=== PATIENT | female | born 1975 | race Caucasian/White ===

== ENCOUNTER → 2019-03-17 12:43 | Outpatient (CLI) | payer OTHER, SELFPAY ==
--- NOTE | 2019-03-17 | DI.US.S_ITS ---
ULTRASOUND OF LEFT BREAST: 03/17/2019 CLINICAL: Palpable left breast lump. Comparison is made to exam dated: 03/17/2019 and 02/19/2017 [facility]. Color flow and real-time ultrasound of the left breast were performed. Hinton scale images of the real-time examination were reviewed. There is a 0.7 cm x 0.6 cm x 0.8 cm irregular mass with an angular margin in the left breast at 3 o'clock middle depth 6 cm from the nipple. This irregular mass is hypoechoic with no posterior acoustic shadowing or enhancement. Color flow imaging demonstrates that there is vascularity present. There also is a lymph node with eccentric cortical thickening in the left axillary tail. This lymph node is hypoechoic with fatty hilum. IMPRESSION: SUSPICIOUS OF MALIGNANCY The 0.7 cm x 0.6 cm x 0.8 cm irregular mass in the left breast at 3 o'clock middle depth is suspicious of malignancy. An ultrasound guided biopsy is recommended. The lymph node with eccentric cortical thickening in the left axillary tail is suspicious of malignancy. An ultrasound guided biopsy is recommended. Findings and recommendations were discussed with the patient during today's visit by Dr. Mosqueda. This exam was interpreted at Station ID: [id number]. Electronically Signed By: Juni walden/:03/18/2019 09:31:52 Entry: - 03/18/2019 09:31:52 letter sent: Biopsy Required Ultrasound BI-RADS: 4 Suspicious for malignancy
--- NOTE | 2019-03-17 | DI.MG.S_ITS ---
BILATERAL DIGITAL DIAGNOSTIC MAMMOGRAM 3D/2D: 03/17/2019 CLINICAL: Left breast lump. Comparison is made to exam dated: 02/19/2017 [facility]. The tissue of both breasts is heterogeneously dense. This may lower the sensitivity of mammography. No significant masses, calcifications, or other findings are seen in either breast. IMPRESSION: INCOMPLETE: NEEDS ADDITIONAL IMAGING EVALUATION There is no abnormality seen in the left breast to correspond with the area of clinical concern and palpable abnormality in the upper outer quadrant, however, further evaluation with sonogram is recommended which is scheduled to immediately follow this examination. This exam was interpreted at Station ID: [id number]. NOTE: For mammograms, a report in lay terms will be sent to the patient. Approximately 15% of breast malignancies will not be visualized mammographically. In the management of a palpable breast mass, a negative mammogram must not discourage biopsy of a clinically suspicious lesion. Electronically Signed By: Juni Mata M.D. aty/:03/17/2019 14:05:26 ACR BI-RADS Category 0: Incomplete [id number]
== END ==
PROVIDERS: PCP Physician Assistant; Visit Provider Family Medicine
DX: R92.8 Other abnormal and inconclusive findings on diagnostic imaging of breast (principal); N63.25 Unspecified lump in the left breast, overlapping quadrants; R59.0 Localized enlarged lymph nodes
CPT/HCPCS: 76642; 77066; G0279

== ENCOUNTER → 2020-03-01 17:31 | Outpatient (CLI) | payer MEDICARE, OTHER, SELFPAY ==
--- NOTE | 2020-03-01 | DI.MRI.S_ITS ---
PROCEDURE: MR LUMBAR SPINE WO CON INDICATIONS: Radiculopathy, lumbosacral region TECHNIQUE: Noncontrast sagittal T1 spin echo and T2 fast echo, sagittal STIR, axial T1 and T2 fast spin echo through the lumbar spine. In cases with scoliosis, additional coronal T2 fast spin echo may be performed. COMPARISON: [facility], MR, L-SPINE WITHOUT CONTRAST, 11/15/2011, 16:40. FINDINGS: Image quality: Degraded by motion artifact. Alignment and Curvature: Straightening of the normal lordotic curvature. Bone Marrow: No fracture. Multilevel degenerative endplate sclerosis and spurring. Diffuse facet arthropathy. Endplate degenerative signal changes most pronounced at L3-L4. Spinal Cord: Conus medullaris terminates at the L1-L2 level. Visualized cord demonstrates normal signal and size. Paraspinous Soft Tissues: Subcentimeter renal foci, statistically cysts, although technically too small to characterize accurately and therefore nonspecific. L1-L2: Normal appearance. L2-L3: Normal appearance. L3-L4: Mild canal narrowing. Partial effacement of both lateral recesses with bilaterally symmetric appearance. Mild left and moderate right foraminal narrowing. No definite interval change L4-L5: Interval worsening and enlargement of left paramedian disc protrusion, and posterior annular fissure. There is further effacement of the left lateral recess. There is also partial effacement of the right lateral recess. Mild bilateral foraminal narrowing. This is unchanged L5-S1: No definite canal or lateral recess narrowing. Mild left foraminal narrowing. No right foraminal stenosis. IMPRESSION: Interval worsening of L4-L5 left paramedian disc protrusion as detailed above. Interval progression of left subarticular narrowing raising the possibility of impingement of the descending left L5 nerve root. Please correlate to clinical exam findings Elsewhere, grossly unchanged examination Dictated by: Tawanda Castañeda M.D. on 03/02/2020 at 9:12 Approved by: Tawanda Castañeda M.D. on 03/02/2020 at 9:27
== END ==
PROVIDERS: PCP Physician Assistant; Referring Provider Family Medicine; Visit Provider Family Medicine
DX: M51.16 Intervertebral disc disorders with radiculopathy, lumbar region (principal)
CPT/HCPCS: 72148

== ENCOUNTER → 2020-05-19 12:02 | Outpatient (CLI) | payer MEDICARE, OTHER, SELFPAY ==
--- NOTE | 2020-05-19 | DI.CT.S_ITS ---
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 5 mm coronal and sagittal reformats were performed, with additional 7 mm coronal MIP reformats through the lungs. For radiation dose reduction, the following was used: automated exposure control, adjustment of mA and/or kV according to patient size. COMPARISON: [facility], MR, MR LUMBAR SPINE WO CON, 03/01/2020, 18:24. FINDINGS: Image quality: Excellent. CHEST: Lungs and pleura: There is a 5 mm subpleural nodule in the left upper lobe (series 5, image 71). A cluster of 3 mm nodules are seen in the left lower lobe (series 5, image 158). Another 3 mm nodule is seen in the left lower lobe (series 5 image 246). No acute airspace opacities. No pleural effusions or pneumothorax. Central and peripheral airways appear patent and normal in caliber. Mediastinum: Heart size is normal. No pericardial effusion. A borderline enlarged right hilar lymph node measures 1.2 cm. No mediastinal adenopathy by size criteria. Thoracic aorta and central pulmonary arteries are normal in size. Esophagus is normal in caliber. No hiatal hernia. Chest wall: Bilateral mastectomies and lymph node dissections. Prominent axillary lymph nodes are identified bilaterally measuring up to 0.8 x 1.2 cm on the right and 0.9 mm on the left. Thyroid gland is normal. ABDOMEN: Solid organs: Liver is normal in size and enhancement. Gallbladder is normal. Biliary system is non dilated. Pancreas enhances normally. Spleen is normal in size and enhancement. No adrenal nodules. Kidneys demonstrate normal size and enhancement, without hydronephrosis. Peritoneum and bowel: Bowel loops demonstrate normal wall thickness and caliber. There is a large amount of stool in colon. No free fluid or air. Nodes and vessels: No retroperitoneal or mesenteric adenopathy by size criteria. Aorta and inferior vena cava are normal in size. Miscellaneous: No ventral hernias. PELVIS: Genitourinary: There is a 1.8 x 2.2 cm enhancing mass in the superior to uterus left of the midline. A 1.6 cm round submucosal lesion is in arising from the anterior wall, most likely a uterine fibroid. Ovaries are not well seen. Bladder wall thickness is normal. Miscellaneous: No inguinal hernias or adenopathy. Subcentimeter inguinal lymph nodes are present bilaterally, most likely reactive. Bones: No suspicious bony lesions. No vertebral body compression fractures. Degenerative changes in the lower lumbar spine. IMPRESSION: 1. Postsurgical changes related to bilateral mastectomies. 2. A borderline enlarged right hilar lymph node is indeterminate. 3. Multiple prominent subcentimeter lymph nodes are seen in the axillae bilaterally. Garfield metastasis cannot be excluded. Please correlate with pathological diagnosis from bilateral axillary lymph node dissections. 3. Multiple left lung nodules. Recommend a short-term follow-up CT in 3 months. The right hilar lymph node can be followed at the same time. 4. A 1.8 x 2.2 cm enhancing mass in the left pelvis superior to the uterus most likely an exophytic fibroid versus, but an ovarian mass command be excluded. Pelvic ultrasound is recommended for follow-up evaluation. 5. Myomatous uterus. Dictated by: Lisa Lynn M.D. on 05/19/2020 at 16:47 Approved by: Lisa Lynn M.D. on 05/19/2020 at 17:29
== END ==
PROVIDERS: PCP Physician Assistant; Referring Provider Internal Medicine Medical Oncology; Visit Provider Internal Medicine Medical Oncology
DX: D05.12 Intraductal carcinoma in situ of left breast (principal); R91.8 Other nonspecific abnormal finding of lung field; R59.0 Localized enlarged lymph nodes; R19.00 Intra-abdominal and pelvic swelling, mass and lump, unspecified site; D25.9 Leiomyoma of uterus, unspecified; Z90.13 Acquired absence of bilateral breasts and nipples
CPT/HCPCS: 71260; 74177; Q9967

== ENCOUNTER → 2020-07-24 10:41 | Outpatient (CLI) | payer MEDICARE, OTHER, SELFPAY ==
--- NOTE | 2020-07-24 | DI.CT.S_ITS ---
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 5 mm coronal and sagittal reformats were performed, with additional 7 mm coronal MIP reformats through the lungs. For radiation dose reduction, the following was used: automated exposure control, adjustment of mA and/or kV according to patient size. COMPARISON: Outside Facility, , CT THORAX/ABDOMEN/PELVIS WITH CONTRAST, 05/18/2019, 11:41. [facility], CT, CT CHEST ABD PEL W CON, 05/19/2020, 12:59. FINDINGS: Image quality: Excellent. CHEST: Unchanged 4 mm nodules associated with the left fissure. Additional 5 mm pleural nodule seen in the left upper lobe posteriorly on image 63/2 also unchanged. No pleural effusions or pneumothorax. Central and peripheral airways appear patent and normal in caliber. Mediastinum: Heart size is normal. No pericardial effusion. A right hilar lymph node measuring 1.0 x 1.6 cm slightly more conspicuous since 05/19/20 (1.1 x 1.7 cm) however the appearance could be due to slice registration artifact, given no definite increase in size. Recommend continued close attention to this area on subsequent studies. Thoracic aorta and central pulmonary arteries are normal in size. Esophagus is normal in caliber. No hiatal hernia. Chest wall: No axillary or supraclavicular adenopathy by size criteria. Thyroid is grossly unremarkable. Postsurgical changes related to bilateral mastectomies. ABDOMEN: Solid organs: Liver is normal in size and enhancement. The gallbladder is grossly unremarkable.. Biliary system is non dilated. Pancreas enhances normally. Spleen is normal in size and enhancement. No adrenal nodules. Kidneys demonstrate normal size and enhancement, without hydronephrosis. Peritoneum and bowel: Bowel loops demonstrate normal wall thickness and caliber. No free fluid or air. Nodes and vessels: No retroperitoneal or mesenteric adenopathy by size criteria. Aorta and inferior vena cava are normal in size. Miscellaneous: No ventral hernias. PELVIS: Genitourinary: Bladder wall thickness is normal. Miscellaneous: No inguinal hernias or adenopathy. Bones: No suspicious bony lesions. No vertebral body compression fractures. IMPRESSION: Overall, grossly stable examination without specific evidence of metastatic disease. A right hilar lymph node appears slightly more conspicuous as detailed above although this could be due to slice registration artifact. Recommend attention to this area on subsequent studies Dictated by: Tawanda Castañeda M.D. on 07/24/2020 at 14:26 Approved by: Tawanda Castañeda M.D. on 07/24/2020 at 14:41
--- NOTE | 2020-07-24 | DI.RAD.S_ITS ---
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 COMPARISON: None. FINDINGS: Bones: No fracture. Mild levocurvature. Straightening of the normal lordotic curvature. Severe narrowing of the L4-L5 disc space. Moderate L4-L5 and L5-S1 disc space narrowing. Soft tissues: Overlying bowel gas pattern is normal. No suspicious soft tissue calcifications. Oblique images: No pars defects. IMPRESSION: Lumbar spondylosis and mild levocurvature as above Dictated by: Tawanda Castañeda M.D. on 07/24/2020 at 12:34 Approved by: Tawanda Castañeda M.D. on 07/24/2020 at 12:36
--- NOTE | 2020-09-06 09:43 | ONC.MSW ---
Called pt re: referral, she has decided to go to [facility] for her care at this time.
== END ==
PROVIDERS: PCP Physician Assistant; Referring Provider Internal Medicine Medical Oncology; Visit Provider Internal Medicine Medical Oncology
DX: C50.911 Malignant neoplasm of unspecified site of right female breast (principal); C50.912 Malignant neoplasm of unspecified site of left female breast; R91.8 Other nonspecific abnormal finding of lung field; M47.26 Other spondylosis with radiculopathy, lumbar region; M51.16 Intervertebral disc disorders with radiculopathy, lumbar region; Z90.13 Acquired absence of bilateral breasts and nipples; Z90.710 Acquired absence of both cervix and uterus
CPT/HCPCS: 71260; 72110; 74177; 99214; Q9967

== ENCOUNTER 2020-08-10 15:22 | Outpatient (CLI) | payer MEDICARE, OTHER, SELFPAY ==
[2020-08-10] VITALS (7 sets, daily range): BP systolic 107–136; BP diastolic 65–72; PULSE 73–94; RESP 13–19; TEMP 37.2; O2SAT 99–100
--- NOTE | 2020-08-10 15:43 | DI.RAD.S_ITS ---
PROCEDURE: PAIN L/S TRANSFORAMINAL INJECT INDICATIONS: SPONDYLOSIS COMPARISON: [facility], CR, XR LUMBAR SPINE MIN 4V, 07/24/2020, 11:03. FINDINGS: Fluoroscopic spot filming was performed to verify placement of a spinal needle at the L4-L5 level, as labeled on the films. Appropriate location of the needle tip was confirmed by injection of iodinated contrast. IMPRESSION: Intraprocedural examination within normal limits. Dictated by: Christophe Parson M.D. on 08/10/2020 at 16:15 Approved by: Christophe Parson M.D. on 08/10/2020 at 16:15
[2020-08-10] MEDS: IOPAMIDOL 15 ML VIAL 3 ML INJ (16:08)
[2020-08-10] MEDS: DEXAMETHASONE 10 MG/ML VIAL 20 MG INJ (16:08)
[2020-08-10] MEDS: BUPIVACAINE 0.25% (PF) VIAL 2 ML INJ (16:08)
[2020-08-10] MEDS: methylPREDNISolone acetate 80 MG/ML VIAL INJ (16:10)
--- NOTE | 2020-08-10 16:31 | P.PCN_ITS ---
Date/Time/Diagnoses Date of procedure: 08/10/20 Time of procedure: 16:32 Pre-procedure diagnosis: 1. FORAMINAL STENOSIS WITH LE SYMPTOMS Post-procedure diagnosis: same Procedure Notes Procedure: 1. FLUOROSCOPICALLY GUIDED CONTRAST CONTROLLED TRANSFORAMINAL EPIDURAL STEROID INJECTION - RIGHT L4/5 TFESI Indications: Neris is referred by PAC Nolan for treatment of Foraminal Stenosis with Right LE Symptoms Physician: Rudy Enamorado Total Fluoroscopy time (seconds): 16 Total sedation minutes: 0 Complications: none Procedure in detail & Post-procedure care: FINDINGS Foraminal Nerve Root Compression secondary to disc disease and facet hypertrophy DESCRIPTION OF PROCEDURE Following review of allergy and review of potential side effects and complications, including, but not necessarily limited to, infection, allergic reaction, local tissue breakdown, stroke, temporary or permanent nerve injury, paralysis, and possible , the patient indicated that the patient understood and agreed to proceed. An informed consent document was signed by the patient, witnessed by a nurse, and placed in the patient's chart. Additionally, other treatment options including medications, modalities, and physical therapy were reviewed with the patient. After review of previous anaesthesic history and IV conscious sedation the patient was deemed safe to proceed with today?s procedure with IV conscious sedation as ASA class II designation. Safety time-out was performed to confirm patient ID, procedure to be performed and site of procedure. IV sedation was deemed unnecessary and thus not administered by the RN after DO order, titrated to patient comfort during the course of the procedure while the patient remained responsive to all verbal commands In the prone position following sterile prep and drape of the lumbar region, the right L4/5 posterior neuroforamen was identified fluoroscopically. The skin was anesthetized via a 25-gauge 1.5-inch needle with 1% lidocaine solution. At this point, a 25-gauge 3.5-inch spinal needle was atraumatically introduced and advanced under fluoroscopic guidance through the posterior right L4/5 neuroforamen to approximately the anterior aspect of the canal. Depth was confirmed on lateral view. Following negative aspiration, injection of approximately 1.5cc of Isovue 200 under live fluoroscopy in the AP view confirmed excellent flow along the nerve root, into the epidural space without vascular or intrathecal uptake observed Radiological data, including multiple fluoroscopic views of the lumbosacral spine, reveal a spinal needle at the right L4/5 posterior neuroforamen. Subsequent views show flow of contrast material flowing superiorly and inferiorly along the nerve root confirming epidural flow. Subsequently, a test dose of 1.5 cc of 1% lidocaine solution was administered and patient was observed for two minutes for signs or symptoms of complications, including abdominal pain, shortness of breath, bilateral upper or lower extremity weakness, nausea and vomiting, prior to steroid injection. At this point, a total of 3cc or 20mg of dexamethasone and 80mg depo-medrol was injected without incident. The procedure tolerated the procedure well without signs or symptoms of complications prior to transfer to the recovery area continued monitoring without incident. The patient was then transferred to the recovery area where they were observed for an appropriate time after the injection. The patient reported a VAS score of 7 prior to the procedure and a post- procedure VAS of 0. POST OP INSTRUCTIONS The patient was provided a Pain Log to continue to record their response to the target-specific procedure prior to follow-up visit with their referring physician. Additionally, specific post-injection care instructions and a contact number to our office were provided if concerns arise regarding possible complications associated with the procedure are suspected.
== END 2020-08-10 16:35 | disposition home or self-care (01) ==
PROVIDERS: PCP Physician Assistant; Referring Provider Physical Medicine & Rehabilitation; Visit Provider Physical Medicine & Rehabilitation
DX: M51.26 Other intervertebral disc displacement, lumbar region (principal); M54.16 Radiculopathy, lumbar region; M48.061 Spinal stenosis, lumbar region without neurogenic claudication
CPT/HCPCS: 64483; J0702; J1040; J1100; J2250; J3010

== ENCOUNTER → 2020-12-28 12:12 | Outpatient (CLI) | payer MEDICARE, OTHER, SELFPAY | PROVIDERS: PCP Physician Assistant; Referring Provider Physician Assistant; Visit Provider Physician Assistant | DX: R20.2 Paresthesia of skin (principal); R20.0 Anesthesia of skin | CPT/HCPCS: 95886; 95911 ==

== ENCOUNTER → 2020-12-29 13:20 | Outpatient (CLI) | payer MEDICARE, OTHER, SELFPAY ==
--- NOTE | 2020-12-29 13:25 | DI.US.S_ITS ---
PROCEDURE: US ABDOMEN LIMITED INDICATIONS: LEFT UPPER BACK MASS TECHNIQUE: Real-time focused scanning was performed of the abdomen, with image documentation. COMPARISON: None. FINDINGS: 2 complex hypoechoic masses are present corresponding to the palpable abnormality largest measuring up to 1.3 cm and the smaller roughly 4 mm. Mild internal vascularity. IMPRESSION: Nonspecific complex mildly vascular soft tissue masses. Differential would include both benign and malignant etiologies. If indicated, contrast-enhanced soft tissue MRI could be performed for further assessment. Dictated by: Roberto BERRIOS Interpreted: Lucas Malave MD on 12/29/2020 at 14:41 Transcribed by: AMERICA on 12/29/2020 at 14:42 Approved by: Lucas Malave M.D. on 12/29/2020 at 15:11
--- NOTE | 2020-12-29 13:25 | DI.CT.S_ITS ---
PROCEDURE: CT FACIAL BONES WO CON INDICATIONS: left sided facial trauma TECHNIQUE: Noncontrast 2.5 mm thick axial images acquired from the mandible through the frontal sinuses, with coronal and sagittal reformatting. For radiation dose reduction, the following was used: automated exposure control, adjustment of mA and/or kV according to patient size. COMPARISON: None. FINDINGS: Image quality: Excellent. Bones and teeth: Orbital cheatham are intact. Sinus cheatham show no fracture or deformity. Nasal bones and septum are intact. Visualized portions of the mandible demonstrate no fractures or subluxation. Zygomatic arches are intact. Pterygoid plates are intact. Visualized portions of the skull base and auditory canals are intact. Sinuses: Mild mucosal thickening is seen within the inferior maxillary sinuses. Paranasal sinuses are otherwise well aerated, without fluid levels, mucosal thickening, or mucoceles. Mastoid air cells are aerated. There is a left-sided jean bullosa. Moderate rightward nasal septal deviation can be seen. The ostiomeatal complexes are constitutionally narrowed, with bilateral Carolyn cells. The right ostiomeatal complex is further narrowed by soft tissue thickening. Soft tissues: No edema, masses, or fluid collections. No enlarged lymph nodes. No soft tissue lacerations or debris. Vascular: Visualized vascular structures appear normal in the absence of contrast. Bony vascular foramina and canals are intact. IMPRESSION: No displaced fractures are seen. Mild maxillary sinus disease can be seen. Narrowed ostiomeatal complexes, with bilateral Carolyn cells. Dictated by: Christophe Parson M.D. on 12/29/2020 at 12:51 Approved by: Christophe Parson M.D. on 12/29/2020 at 12:54
== END ==
PROVIDERS: PCP Physician Assistant; Referring Provider Physician Assistant; Visit Provider Physician Assistant
DX: S04.50XA Injury of facial nerve, unspecified side, initial encounter (principal); S09.93XA Unspecified injury of face, initial encounter; D49.2 Neoplasm of unspecified behavior of bone, soft tissue, and skin; J32.0 Chronic maxillary sinusitis; R42 Dizziness and giddiness; X58.XXXA Exposure to other specified factors, initial encounter
CPT/HCPCS: 70486; 76705

== ENCOUNTER → 2021-01-10 15:23 | Outpatient (CLI) | payer MEDICARE, OTHER, SELFPAY ==
--- NOTE | 2021-01-10 15:24 | DI.MRI.S_ITS ---
PROCEDURE: MR CHEST WO/W CON INDICATIONS: left upper back/scapular area soft tissue masses TECHNIQUE: Axial 2-D FLASH in- and [id number], axial breath-hold T2 FSE, axial STIR FSE. Optional contrast may be given, followed by axial 2-D FLASH with fat saturation acquired over the lesion of concern. AM are surface marker was placed over the area of current clinical concern. Imaging was performed without and with contrast. COMPARISON: [facility], US, US ABDOMEN LIMITED, 12/29/2020, 14:01. FINDINGS: Image quality: Excellent. Region of interest: Small ovoid sharply demarcated structure seen also by ultrasound 12/29/20 within the subcutaneous fat of the posterior upper back on the left. The clinical history gathered by the technologist indicates that this structure has been present for many years. Please confirm. There is a previously sonographically evaluated ovoid ashley shaped structure within the subcutaneous fat corresponding to the area of patient's clinical concern. By ultrasound this was accurately measured as up to 1.3 by 1.2 x 0.5 cm. It shows minimal enhancement, homogeneous, and represents the palpable area of clinical concern. Bones: Nearby osseous structures demonstrate normal overall marrow signal. IMPRESSION: Nonspecific sharply demarcated ovoid reportedly longstanding structure in the subcutaneous fat measuring up to 1.3 x 1.2 x 0.5 cm dorsal to the upper posterior back region near the axial equivalent of just below the lung apex. This structure could be excised for histologic analysis if clinically warranted. The prior ultrasound had reported a very small medial structure in the subcutaneous fat near this palpable nodule, but that separate site could not be located by MR scanning. Dictated by: Lucas Malave M.D. on 01/11/2021 at 9:02 Approved by: Lucas Malave M.D. on 01/11/2021 at 9:09
== END ==
PROVIDERS: PCP Physician Assistant; Referring Provider Physician Assistant; Visit Provider Physician Assistant
DX: D49.2 Neoplasm of unspecified behavior of bone, soft tissue, and skin (principal); Z85.3 Personal history of malignant neoplasm of breast
CPT/HCPCS: 71552; A9579

== ENCOUNTER → 2021-02-21 16:04 | Outpatient (CLI) | payer MEDICARE, OTHER, SELFPAY ==
[2021-02-21 17:36] LABS: C-Reactive Protein Quant < 0.5 mg/dL (<1.0); Uric Acid 3.6 mg/dL (2.5-6.2)
[2021-02-21 17:39] LABS: Rheumatoid Factor < 8.6 IU/mL (<12.0)
[2021-02-21 17:41] LABS: Erythrocyte Sedimentation Rate 2 MM/HR (0-20)
[2021-02-21 18:15] LABS: Thyroid Stimulating Hormone 2.75 uIU/mL (0.47-4.68)
[2021-02-24 16:57] LABS: ANA Screen, IFA Positive (.)
== END ==
PROVIDERS: PCP Physician Assistant; Referring Provider Orthopaedic Surgery Foot and Ankle Surgery; Visit Provider Orthopaedic Surgery Foot and Ankle Surgery
DX: M65.30 Trigger finger, unspecified finger (principal)
CPT/HCPCS: 36415; 83036; 84443; 84550; 85651; 86038; 86140; 86430

== ENCOUNTER → 2021-04-03 08:56 | Outpatient (CLI) | payer MEDICARE, OTHER, SELFPAY ==
--- NOTE | 2021-04-03 08:57 | DI.MRI.S_ITS ---
PROCEDURE: MR CERVICAL SPINE WO CON INDICATIONS: midline neck pain x 1 year w/o DANYEL, bilat hand weak trigger TECHNIQUE: Noncontrast sagittal T1 spin echo and T2 fast spin echo, sagittal STIR, foraminal oblique sagittal T2 fast spin echo, and axial gradient echo or T2 fast spin echo through the cervical spine. COMPARISON: None. FINDINGS: Image quality: This examination is limited by involuntary motion artifact. Alignment and Curvature: Reversal of the normal cervical lordosis is seen, with the apex at the C4-C5 level. Minimal retrolisthesis is seen at C5-C6. Bone Marrow: Marrow demonstrates normal overall signal. Spinal Cord: Visualized spinal cord has normal size and signal. No cerebellar tonsillar herniation. Paraspinous Soft Tissues: No paravertebral masses. Prevertebral soft tissues are normal in thickness. C2-C3: The disc height is well-preserved. Loss of disc signal is seen at this level. No significant neural foraminal or central canal narrowing can be seen. C3-C4: The disc height is well-preserved. Loss of disc signal is seen at this level. Mild to moderate disc osteophyte complex is seen. Mild to moderate facet hypertrophy is seen. Mild to moderate bilateral neural foraminal narrowing can be seen. No significant central canal narrowing is seen. C4-C5: Moderate loss of disc height is seen. Loss of disc signal is seen. Moderate disc osteophyte complex is seen, which is eccentric to the right. There is a mild central disc osteophyte protrusion seen. There is mild right-sided and [id number] left-sided facet hypertrophy seen at this level. There is at least moderate bilateral neural foraminal narrowing seen. Mild to moderate central canal narrowing is seen, with associated mass effect upon the ventral spinal cord. C5-C6: At least moderate loss of disc height is seen. At least moderate disc osteophyte complex is seen. There is a central/left disc osteophyte protrusion seen. Moderate facet joint hypertrophy is seen. Moderate to severe bilateral neural foraminal narrowing can be seen. Moderate to severe central canal narrowing is seen, with associated mass effect upon the ventral spinal cord. C6-C7: Moderate loss of disc height is seen. Loss of disc signal is seen. Moderate disc osteophyte complex is seen, with a central/left disc osteophyte protrusion. Mild to moderate facet hypertrophy is seen. There is at least moderate bilateral neural foraminal narrowing seen. Mild to moderate central canal narrowing is seen. C7-T1: No significant abnormality is seen. IMPRESSION: Multiple levels of premature cervical spine degenerative changes are seen, which are overall most prominent at C5-C6. Dictated by: Christophe Parson M.D. on 04/03/2021 at 9:56 Approved by: Christophe Parson M.D. on 04/03/2021 at 9:59
== END ==
PROVIDERS: PCP Physician Assistant; Referring Provider Physician Assistant; Visit Provider Physician Assistant
DX: M47.812 Spondylosis without myelopathy or radiculopathy, cervical region (principal); M54.2 Cervicalgia; R20.0 Anesthesia of skin; R20.2 Paresthesia of skin; M24.549 Contracture, unspecified hand
CPT/HCPCS: 72141

== ENCOUNTER → 2021-07-18 09:36 | Outpatient (CLI) | payer MEDICARE, OTHER, SELFPAY ==
--- NOTE | 2021-07-18 09:40 | DI.RAD.S_ITS ---
PROCEDURE: XR CERVICAL SPINE 4V OR 5V INDICATIONS: NECK PAIN TECHNIQUE: 5 views of the cervical spine acquired. COMPARISON: None. FINDINGS: Bones: No fractures or dislocations to the C7-T1 level. There is mild reversal of normal cervical lordosis centered at C4-5 level. Degenerative endplate changes and bilateral facet hypertrophic changes are noted at C4-5 through C6-7 levels. Oblique images demonstrate mild right-sided bony foraminal stenosis at C5-6 level and [id number] left-sided bony foraminal stenosis at C4-5 and C5-6 levels. Soft tissues: No prevertebral soft tissue swelling. IMPRESSION: Degenerative disc disease throughout mid to lower cervical spine with suggestion of bilateral bony foraminal stenosis as above. Dictated by: Brian Nolan M.D. on 07/18/2021 at 9:53 Approved by: Brian Nolan M.D. on 07/18/2021 at 9:54
== END ==
PROVIDERS: PCP Physician Assistant; Referring Provider Physical Medicine & Rehabilitation; Visit Provider Physical Medicine & Rehabilitation
DX: M50.121 Cervical disc disorder at C4-C5 level with radiculopathy (principal); M47.22 Other spondylosis with radiculopathy, cervical region; R20.0 Anesthesia of skin; R20.2 Paresthesia of skin; F43.12 Post-traumatic stress disorder, chronic; M65.311 Trigger thumb, right thumb; M65.312 Trigger thumb, left thumb; Z90.13 Acquired absence of bilateral breasts and nipples
CPT/HCPCS: 72050; 99215

== ENCOUNTER → 2021-11-14 09:51 | Outpatient (CLI) | payer MEDICARE, OTHER, SELFPAY ==
[2021-11-14 20:36] LABS: Add Manual Diff / Slide Review NO; Basophils Absolute Auto 0 /uL (0-100); Basophils Percent Auto 0.4 % (0-2); Eosinophils Absolute Auto 0 /uL (0-450); Eosinophils Percent Auto 0.1 % (2-4); Hemoglobin 13.4 g/dL (12.0-16.0); Lymphocytes Absolute Auto 1300 /uL (1100-4500); Lymphocytes Percent Auto 40.6 % (25-40); Mean Corpuscular HGB Conc 33.6 % (30-36); Mean Corpuscular Hemoglobin 30.5 PG (26-34); Mean Corpuscular Volume 90.8 fL (80-100); Monocytes Absolute Auto 300 /uL (0-900); Monocytes Percent Auto 8.4 % (3-14); Neutrophils Absolute Auto 1600 /uL (1500-7000); Neutrophils Percent Auto 50.5 % (50-75); Platelet Count 197 X10^3/uL (150-400); Red Cell Distribution Width 11.9 % (11.6-14.8); White Blood Cell Count 3.1 X10^3/uL (4.5-11.0)
[2021-11-14 20:50] LABS: Alanine Aminotransferase 19 IU/L (<35); Albumin 4.6 g/dL (3.5-5.0); Albumin Globulin Ratio 1.8 (1.0-2.8); Alkaline Phosphatase 68 U/L (38-126); Aspartate Aminotransferase 26 IU/L (14-36); BUN Creatinine Ratio 28.2 (6-22); Bilirubin Total 0.8 mg/dL (0.2-1.3); Blood Urea Nitrogen 20 mg/dL (7-17); Calcium 9.3 mg/dL (8.4-10.2); Carbon Dioxide 29 mmol/L (22-32); Chloride 105 mmol/L (98-107); Estimated Glomerular Filt Rate > 60 mL/min (>60); Globulin 2.5 g/dL (1.7-4.1); Glucose 98 mg/dL (70-100); HEMOLYSIS < 15 (0-50); Potassium 4.8 mmol/L (3.4-5.1); Sodium 141 mmol/L (137-145); Total Protein 7.1 g/dL (6.3-8.2)
== END ==
PROVIDERS: PCP Physician Assistant; Visit Provider Physician Assistant
DX: M51.26 Other intervertebral disc displacement, lumbar region (principal); C50.911 Malignant neoplasm of unspecified site of right female breast; D72.819 Decreased white blood cell count, unspecified
CPT/HCPCS: 80053; 85025

== ENCOUNTER → 2022-07-17 09:25 | Outpatient (CLI) | payer MEDICARE, OTHER, SELFPAY ==
--- NOTE | 2022-07-17 09:28 | DI.CT.S_ITS ---
PROCEDURE: CT CHEST ABD PEL W CON INDICATIONS: breast cancer TECHNIQUE: After the administration of oral and intravenous contrast, axial sections acquired from the supraclavicular neck to the pubic symphysis. Coronal and sagittal reformats were performed. For radiation dose reduction, the following was used: automated exposure control, adjustment of mA and/or kV according to patient size. COMPARISON: [facility], CT, CT CHEST ABD PEL W CON, 07/24/2020, 12:11. [facility], CT, CT CHEST ABD PEL W CON, 05/19/2020, 12:59. FINDINGS: Image quality: Excellent. CHEST: Lungs and pleura: No acute airspace opacities. No new or suspicious pulmonary nodules. No suspicious pulmonary mass. No septal thickening or nodularity. No pleural effusions or pneumothorax. Central and peripheral airways appear patent and normal in caliber. Mediastinum: Heart size is normal. No pericardial effusion. Redemonstration of superior right hilar lymph node measuring 1.0 x 1.5 cm in size (image 25/series 2). Otherwise, no new or suspicious mediastinal or hilar adenopathy. Thoracic aorta and central pulmonary arteries are normal in size. Esophagus is normal in caliber. No hiatal hernia. Chest wall: No axillary or supraclavicular adenopathy by size criteria. Thyroid gland is unremarkable. Osseous structures of the chest appear unremarkable. 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 ABDOMEN: Solid organs: Liver is unremarkable. No suspicious hepatic lesions identified. Gallbladder is unremarkable.. Biliary system is non dilated. Pancreas is unremarkable. Spleen is normal in size. No adrenal nodules. Kidneys demonstrate normal size, without hydronephrosis. Peritoneum and bowel: Bowel loops demonstrate normal wall thickness and caliber. No free fluid No free air. Moderate fecal burden seen throughout the colon. Nodes and vessels: No retroperitoneal or mesenteric adenopathy by size criteria. Aorta and inferior vena cava are normal in size. Miscellaneous: Tiny fat containing umbilical hernia without acute inflammation. PELVIS: Genitourinary: Bladder wall thickness appears normal for degree of distention. Reproductive organs appear unremarkable as visualized. Miscellaneous: No inguinal hernias. No pelvic adenopathy. Bones: No suspicious bony lesions. No acute vertebral body compression fractures. IMPRESSION: 1. CT chest, abdomen, and pelvis without evidence for disease recurrence or metastatic disease. No acute abnormalities identified. 2. Stable appearance of previously described prominent right hilar lymph node. No suspicious adenopathy identified elsewhere. Dictated by: Juni Mata M.D. on 07/22/2022 at 16:39 Approved by: Juni Mata M.D. on 07/22/2022 at 16:48
--- NOTE | 2022-07-17 09:28 | DI.NM.S_ITS ---
PROCEDURE: NM BONE SCAN WHOLE BODY RADIOPHARMACEUTICAL: 21.2 mCi Tc-99m MDP IV. INDICATIONS: breast cancer TECHNIQUE: Delayed whole-body scintigrams were obtained approximately 3-4 hours after intravenous injection of radiotracer. Anterior and posterior views were acquired from vertex to feet. Additional left and right oblique views of the spine were obtained. COMPARISON: [facility], CT, CT CHEST ABD PEL W CON, 07/17/2022, 11:04. FINDINGS: Physiologic uptake is noted within the kidneys and bladder. There is increased uptake at L4 and L5. It is overall nonspecific in appearance. No other areas of concerning uptake is identified. IMPRESSION: Uptake at L4-5 is noted nonspecific in appearance and could be related to degenerative change. However, recommend interval follow-up of this region on subsequent exams as metastatic disease cannot be definitively excluded. Dictated by: Seema hSea M.D. on 07/17/2022 at 16:37 Approved by: Seema Shea M.D. on 07/17/2022 at 16:39
== END ==
PROVIDERS: PCP Physician Assistant; Referring Provider Internal Medicine Hematology & Oncology; Visit Provider Internal Medicine Hematology & Oncology
DX: C50.912 Malignant neoplasm of unspecified site of left female breast (principal)
CPT/HCPCS: 71260; 74177; 78306; A9503; Q9967

== ENCOUNTER → 2022-09-27 16:29 | Outpatient (CLI) | payer MEDICARE, OTHER, SELFPAY ==
--- NOTE | 2022-09-27 16:31 | DI.MRI.S_ITS ---
PROCEDURE: MR HEAD/BRAIN WO CON INDICATIONS: Paresthesia of skin. Please evaluate for CVA. TECHNIQUE: Noncontrast axial T1 spin echo, axial T2 fast spin echo, sagittal and axial FLAIR, coronal T2 fast spin echo, axial gradient echo, axial diffusion and ADC through the brain. COMPARISON: None. FINDINGS: Image quality: Excellent. CSF Spaces: Basal cisterns are patent. No extra-axial fluid collections. Ventricles are normal in size and shape. Brain: Numerous foci of abnormal T2 weighted hyperintensity can be seen within the periventricular and deep white matter. A few of the periventricular lesions demonstrate a perpendicular orientation to the lateral ventricles. There are a few peripheral lesions seen, including at least 1 juxtacortical lesion involving the right frontal lobe laterally, as on series 7, image 17. There is involvement of the corpus callosum. Several of the larger lesions demonstrate low signal on T1 weighted imaging. No intracranial masses or hemorrhage. [place]/white matter interface is normal. Brainstem appears normal. Diffusion-weighted images demonstrate no acute ischemic insult. No chronic ischemic insults. Normal intravascular flow voids are present. Skull and face: Calvarium has normal marrow signal. Orbits appear normal. Sinuses: Mild mucosal thickening can be seen within the paranasal sinuses. No abnormal fluid is seen within the mastoid air cells. IMPRESSION: No findings of acute or subacute infarction can be seen. Numerous abnormal T2 hyperintense white matter lesions can be seen, which are highly suspicious for multiple sclerosis, particularly in a woman of this age. Dictated by: Christophe Parson M.D. on 09/27/2022 at 17:22 Approved by: Christophe Parson M.D. on 09/27/2022 at 17:24
== END ==
PROVIDERS: PCP Physician Assistant; Referring Provider Family Medicine; Visit Provider Family Medicine
DX: R20.0 Anesthesia of skin (principal); R20.2 Paresthesia of skin; R29.898 Other symptoms and signs involving the musculoskeletal system
CPT/HCPCS: 70551

== ENCOUNTER → 2023-07-14 10:01 | Outpatient (CLI) | payer MEDICARE, OTHER, SELFPAY ==
[2023-07-14 20:26] LABS: Add Manual Diff / Slide Review NO; Basophils Absolute Auto 0 /uL (0-100); Basophils Percent Auto 1.5 % (0-2); Eosinophils Absolute Auto 0 /uL (0-450); Eosinophils Percent Auto 0.2 % (2-4); Hematocrit 39.1 % (36-46); Hemoglobin 13.3 g/dL (12.0-16.0); Lymphocytes Absolute Auto 1300 /uL (1100-4500); Lymphocytes Percent Auto 38.2 % (25-40); Mean Corpuscular Hemoglobin 30.6 PG (26-34); Monocytes Absolute Auto 300 /uL (0-900); Monocytes Percent Auto 9.1 % (3-14); Neutrophils Absolute Auto 1700 /uL (1500-7000); Platelet Count 216 X10^3/uL (150-400); Red Blood Cell Count 4.34 X10^6/uL (4.0-5.2); Red Cell Distribution Width 12.6 % (11.6-14.8); White Blood Cell Count 3.3 X10^3/uL (4.5-11.0)
[2023-07-14 20:28] LABS: Alanine Aminotransferase 20 IU/L (<35); Albumin 4.3 g/dL (3.5-5.0); Albumin Globulin Ratio 1.8 (1.0-2.8); Alkaline Phosphatase 60 U/L (38-126); Aspartate Aminotransferase 29 IU/L (14-36); BUN Creatinine Ratio 26.7 (6-22); Bilirubin Total 0.5 mg/dL (0.2-1.3); Blood Urea Nitrogen 20 mg/dL (7-17); Calcium 9.5 mg/dL (8.4-10.2); Carbon Dioxide 29 mmol/L (22-32); Chloride 102 mmol/L (98-107); Estimated Glomerular Filt Rate > 60 mL/min (>60); Globulin 2.4 g/dL (1.7-4.1); Glucose 91 mg/dL (70-100); HEMOLYSIS < 15 (0-50); Potassium 4.4 mmol/L (3.4-5.1); Sodium 137 mmol/L (137-145); Total Protein 6.7 g/dL (6.3-8.2)
[2023-07-14 20:43] LABS: Vitamin D 25 Hydroxy (D3) 60.1 ng/mL (30.0-100.0)
[2023-07-16 04:37] LABS: Immunoglobulin A 75 mg/dL (87-352); Immunoglobulin G, Quantitative 573 mg/dL (586-1602); Immunoglobulin M, Quantitative 71 mg/dL (26-217)
== END ==
PROVIDERS: PCP Physician Assistant; Visit Provider Psychiatry & Neurology Neurology
DX: G35 Multiple sclerosis (principal); E67.3 Hypervitaminosis D; E61.0 Copper deficiency; Z76.89 Persons encountering health services in other specified circumstances
CPT/HCPCS: 80053; 82306; 82525; 82784; 85025

== ENCOUNTER → 2023-12-01 14:33 | Outpatient (CLI) | payer MEDICARE, OTHER, SELFPAY ==
[2023-12-04 08:11] LABS: Interpretation Negative (Negative)
== END ==
LOC: LAB 02-02 14:34
PROVIDERS: PCP Physician Assistant; Referring Provider Physician Assistant; Visit Provider Physician Assistant
DX: R10.9 Unspecified abdominal pain (principal); R14.0 Abdominal distension (gaseous)
CPT/HCPCS: 83013

== ENCOUNTER → 2024-02-16 13:42 | Outpatient (CLI) | payer MEDICARE, OTHER, SELFPAY | PROVIDERS: PCP Physician Assistant; Referring Provider Physician Assistant; Visit Provider Surgery | DX: G35 Multiple sclerosis (principal); K90.0 Celiac disease; Z85.3 Personal history of malignant neoplasm of breast | CPT/HCPCS: 99203; 99212 ==

== ENCOUNTER → 2024-02-16 15:19 | Outpatient (CLI) | payer MEDICARE, OTHER, SELFPAY ==
--- NOTE | 2024-02-16 15:21 | DI.RAD.S_ITS ---
PROCEDURE: XR CHEST 2V INDICATIONS: ongoing cough s/p Covid. TECHNIQUE: 2 views of the chest were acquired. COMPARISON: None. FINDINGS: Heart, mediastinum and pulmonary vascular: Heart is normal in size and configuration. Mediastinum is unremarkable. Pulmonary vascular is normal. Lungs: Clear Pleural spaces: Normal-no effusions or pneumothorax. Bones and soft tissues: There appear to be double mastectomy changes IMPRESSION: Normal chest. Dictated by: Miles Tafoya M.D. on 02/17/2024 at 10:20 Approved by: Miles Tafoya M.D. on 02/17/2024 at 10:21
== END ==
PROVIDERS: PCP Physician Assistant; Referring Provider Physician Assistant; Visit Provider Physician Assistant
DX: U07.1 COVID-19 (principal); J45.909 Unspecified asthma, uncomplicated; R05.8 Other specified cough
CPT/HCPCS: 71046

== ENCOUNTER → 2025-03-15 14:31 | Outpatient (CLI) | payer MEDICARE, OTHER, SELFPAY ==
[2025-03-15 19:25] LABS: Add Manual Diff / Slide Review NO; Hematocrit 40.3 % (36-46); Hemoglobin 13.7 g/dL (12.0-16.0); Lymphocytes Absolute Auto 1000 /uL (1100-4500); Mean Corpuscular HGB Conc 34.1 % (30-36); Mean Corpuscular Hemoglobin 30.8 PG (26-34); Mean Corpuscular Volume 90.5 fL (80-100); Platelet Count 245 X10^3/uL (150-400)
[2025-03-15 19:28] LABS: Alanine Aminotransferase 30 IU/L (<35); Albumin 4.9 g/dL (3.5-5.0); Albumin Globulin Ratio 2.1 (1.0-2.8); Alkaline Phosphatase 74 U/L (38-126); Blood Urea Nitrogen 14 mg/dL (7-17); Calcium 10.2 mg/dL (8.4-10.2); Carbon Dioxide 26 mmol/L (22-32); Chloride 103 mmol/L (98-107); Estimated Glomerular Filt Rate > 60 mL/min (>60); Globulin 2.3 g/dL (1.7-4.1); Glucose 99 mg/dL (70-99); HEMOLYSIS 16 (0-50); Potassium 4.0 mmol/L (3.4-5.1); Sodium 139 mmol/L (137-145); Total Protein 7.2 g/dL (6.3-8.2)
[2025-03-17 07:09] LABS: Immunoglobulin A 67 mg/dL (87-352); Immunoglobulin G, Quantitative 577 mg/dL (586-1602)
[2025-03-18 01:40] LABS: Hepatitis B Surf Ab Qualitativ Non Reactive (.)
== END ==
PROVIDERS: PCP Physician Assistant; Visit Provider Psychiatry & Neurology Neurology
DX: D84.9 Immunodeficiency, unspecified (principal); G35.D Multiple sclerosis, unspecified; Z51.81 Encounter for therapeutic drug level monitoring
CPT/HCPCS: 80053; 82784; 85025; 86706